=== PATIENT | male | born 1965 | race Caucasian/White ===

== ENCOUNTER → 2021-07-21 08:52 | Outpatient (BNVA) | payer MEDICARE, MEDICAID, SELFPAY | PROVIDERS: Visit Provider Urology | DX: N52.9 Male erectile dysfunction, unspecified (principal) | CPT/HCPCS: 51798; 99212 ==

== ENCOUNTER → 2023-02-07 13:58 | Outpatient (BNVA) | payer MEDICARE, MEDICAID, SELFPAY | PROVIDERS: PCP Nurse Practitioner Family; Visit Provider Urology | DX: N40.0 Benign prostatic hyperplasia without lower urinary tract symptoms (principal); N52.9 Male erectile dysfunction, unspecified | CPT/HCPCS: 99212 ==

== ENCOUNTER 2023-07-13 10:07 | Outpatient (AMB) | payer MEDICARE, MEDICAID, SELFPAY ==
--- NOTE | 2023-07-13 10:08 | A.OFFVIS_ITS ---
Intake Intake Visit Reasons: Follow Up Intake Note: pt has televisit to follow upon visit 02/07/23 where he was prescribed Tadalafil 5mg Superintendent System Operation Required: Yes Allergies No Known Allergies Allergy (Verified 07/18/22 14:37) Medication List - Last Reconciled 07/13/23 by Lauri Blas MD amitriptyline 50 mg PO BEDTIME lisinopril-hydrochlorothiazide 20-12.5 mg 2 tabs PO DAILY losartan 100 mg PO DAILY losartan 50 mg PO DAILY rosuvastatin 10 mg PO DAILY sildenafil 100 mg PO DAILY PRN 30 days tadalafil 5 mg PO DAILY 90 days tramadol 50 mg PO BID PRN HPI HPI Comments History of Present Illness Details Honorio SANTANA is a very pleasant Beninese speaking male. He is a patient of Dr Hwang. He is seen for the following urologic conditions. - erectile dysfunction - lower urinary tract symptoms Telemedicine Evaluation 15 min Consultation [email or web address] [facility]ah Video Beninese translation provided by qualified medical voucher clerk Follow-up from daily tadalafil trial Extremely helpful Erections have improved Urinary control improved Would like to have refills 6 month follow-up PSA Lower urinary tract symptoms Combination of weakness of stream and mild nocturia Good response to daily tadalafil Erectile dysfunction:? Good effect with daily low-dose tadalafil in on demand sildenafil ? He presents today for?for continued evaluation and management of erectile dysfunction.? Symptoms have been present for/since?gradually since 2014.? Current treatment includes - viagra ? At this time he experiences erections?are partial and insufficient for vaginal penetration, that last until ejaculation, DARIAN 12-16 Mild-Moderate ED.? Currently they are?in a stable relationship.? Therapeutic plan includes?continue oral medications.? [facility] Medical History (Updated 07/13/23 @ 10:32 by Lauri Blas MD) Cirrhosis of liver BPH (benign prostatic hyperplasia) Osteoporosis History of urinary hesitancy Weak urinary stream Erectile dysfunction Surgical History History of bunionectomy Family History (Updated 02/07/23 @ 14:02 by TAQUERIA Burkett) Mother Unknown family medical history Father Unknown family medical history Social History (Updated 02/07/23 @ 14:02 by TAQUERIA Burkett) Alcohol intake: never Assessment & Plan Assessment & Plan (1) BPH (benign prostatic hyperplasia): Code(s): N40.0 - Benign prostatic hyperplasia without lower urinary tract symptoms Qualifiers: Lower urinary tract symptom presence: symptoms present Lower urinary tract symptom detail: urinary frequency Qualified Code(s): N40.1 - Benign prostatic hyperplasia with lower urinary tract symptoms; R35.0 - Frequency of micturition (2) Erectile dysfunction: Code(s): N52.9 - Male erectile dysfunction, unspecified Qualifiers: Erectile dysfunction type: vasculogenic Vasculogenic erectile dysfunction type: due to arterial insufficiency Qualified Code(s): N52.01 - Erectile dysfunction due to arterial insufficiency Plan Six month follow-up PSA Orders: Orders Prostate Specific Antigen 6 Months N40.0 - Benign prostatic hyperplasia without lower urinary tract symptoms Patient Instructions: Imaging studies, laboratory and physical exam results were discussed and reviewed in detail. No major barriers to patient understanding were identified. An opportunity to ask questions regarding the treatment plan was provided. All questions were answered. The patient expressed understanding and agreement with the above treatment plan. The patient is aware they should contact our office by phone for worsening of their current condition or the appearance of new urologic symptoms. Compliance is encouraged with any medications and followup testing that is ordered. It is a privilege to participate in the urologic care of your patient. If you have any questions or concerns regarding treatment for the above conditions, or other urologic issues, please do not hesitate to contact me. The office telephone contact is [phone]. This note is constructed using voice recognition software. While every effort has been made to ensure accuracy medical transcriptionist errors may have been included. Yours sincerely, Dr Lauri Blas MD, [facility] - Urology Providers of Expert, Compassionate Care for the Genitourinary System Telehealth Telehealth Location of provider rendering services: practice address Location of patient: address on file Patient Identification confirmed using: Name, : Yes Telehealth method: video Patient verbally consented to treatment: Yes Patient verbally consented to billing insurance company: Yes Patient informed of any privacy concerns related to visit: Yes Coding Level of Care Code Tele Est Pt Level 3 (84433) Diagnoses Benign prostatic hyperplasia with urinary frequency N40.1; R35.0 Lower urinary tract symptom presence: symptoms present Lower urinary tract symptom detail: urinary frequency Erectile dysfunction due to arterial insufficiency N52.01 Erectile dysfunction type: vasculogenic Vasculogenic erectile dysfunction type: due to arterial insufficiency
--- OUTSIDE RECORDS SUMMARY | 2023-07-13 10:09 | XMS_ITS | Continuity of Care Document ---
Author Name Unknown Organization [facility] Address [address] [place] [address]- Care Team Providers Care Cable Television Technician Name Role Phone Edu RODAS, Sandoval Primary Care Physician [phone] Encounter [facility] [place] [id number] Date(s): 01/20/23 - 02/19/[address] [address]- Attending Physician: Yenifer Hurst Admitting Physician: AdmtrYenifer Referring Physician: Admtr, Yenifer Allergies, Adverse Reactions, Alerts No Known Allergies Immunizations Given and Recorded Vaccine Date Status Refusal Reason [id number] 12y+ bivalent booster vax 07/28/22 Given influenza virus vaccine, inactivated 07/28/22 Give n influenza virus vaccine, inactivated 08/26/21 Give n influenza virus vaccine, inactivated 06/17/20 Ortiz rded influenza virus vaccine, inactivated 06/13/19 Give n influenza virus vaccine, inactivated 06/21/18 Give n influenza virus vaccine, inactivated 07/17/17 Give n influenza virus vaccine, inactivated 06/24/16 Ortiz rded influenza virus vaccine, inactivated 06/14/14 Ortiz rded influenza virus vaccine, inactivated 06/26/13 Ortiz rded influenza virus vaccine, inactivated 12/31/09 Give n SARS-CoV-2 (COVID-19) mRNA BNT-162b2 vac 1 08/26/21 Given SARS-CoV-2 (COVID-19) mRNA-1273 vaccine 04/30/21 R ecorded SARS-CoV-2 (COVID-19) mRNA-1273 vaccine 2 12/26/20 Given SARS-CoV-2 (COVID-19) mRNA-1273 vaccine 11/28/20 G iven zoster vaccine, inactivated 03/11/20 Recorded zoster vaccine, inactivated 11/28/19 Recorded pneumococcal 23-valent vaccine 03/11/20 Recorded pneumococcal 23-valent vaccine 01/14/14 Given hepatitis B adult vaccine 03/11/20 Recorded hepatitis B adult vaccine 11/28/19 Recorded hepatitis B adult vaccine 08/09/11 Given hepatitis B adult vaccine 03/08/11 Given hepatitis B adult vaccine 3 02/10/11 Given pneumococcal 13-valent vaccine 11/28/19 Recorded tetanus/diphtheria/pertussis, acel(Tdap) 11/28/19 Recorded tetanus/diphtheria/pertussis, acel(Tdap) 07/15/19 Given Hepatitis A Adult Vaccine 06/13/19 Given tetanus-diphtheria toxoids (Td) 12/29/09 Given 1Result Comment: diluent NSS [id number] exp:08/26/21 2Result Comment: Administered by Nery Gates 3Admin Note: VIS GIVEN PT WAITED 10 MIN IN LOBBYWITH NO ADVERSE EVENT. Medications amitriptyline 50 mg oral tablet 1 tablet, By Mouth, Daily at bedtime, # 90 tablet, 1 Refills, 02/16/23 14:27:00 EDT, [facility] #[id number], 160, cm, 01/20/23 9:51:00 EDT, Height, 79, kg, 10/04/22 11:00:00 EST, Dry Weight Start Date: 02/16/23 Status: Ordered amLODIPine 5 mg oral tablet 1 tablet = 5 mg, By Mouth, Daily, # 90 tablet, 1 Refills, Maintenance, 10/04/22 13:29:00 EST, [facility] #[id number], 160, cm, 10/04/22 11:21:00 EST, Height, 79, kg, 10/04/22 11:00:00 EST, Dry Weight Start Date: 10/04/22 Status: Ordered Blood Pressure Machine Blood Pressure Machine, See Instructions, # 1 each, Refills 0, Tot. Refills 0, Maintenance, Blood Pressure Machine Hypertension 401.9 Please use to help adjust BP meds to acheive goal BP., 11/12/20 17:41:00 EST, Supply Start Date: 11/12/20 Status: Ordered Cane See Instructions, # 1 each, Maintenance, Please dispense one cane. R26.9, 06/28/22 13:00:00 EDT, Supply Start Date: 06/28/22 Status: Ordered diclofenac 2% topical solution = 40 mg, Topically, 2 times a day, # 112 Gm, 0 Refills, Maintenance, 06/11/21 16:30:00 EDT, [facility] #[id number], Partial fill upon patient request if the prescription is for a schedule II opioid drug., 40 mg Topically 2 times a day, 160, cm, 0... Start Date: 06/11/21 Status: Ordered flunisolide 25 mcg/inh nasal spray 2 puffs, Nares, Both, 2 times a day, in each nostril, # 25 mL, 5 Refills, Maintenance, 08/17/21 12:19:00 EST, [place], [facility] #[id number], 2 puffs Nares, Both 2 times a day,Instr:in each nostril, 160, cm, 06/23/21 12:45:00 EDT, Height, 79.4, kg... Start Date: 08/17/21 Status: Ordered fluticasone 50 mcg/inh nasal spray See Instructions, SHAKE LIQUID AND USE 2 SPRAYS IN EACH NOSTRIL DAILY, # 48 Gm, 2 Refills, Maintenance, 11/03/22 18:08:00 EST, [facility] #[id number], 90, SHAKE LIQUID AND USE 2 SPRAYS IN EACH NOSTRIL DAILY, 160, cm, 11/03/22 15:54:00 EST, Height... Start Date: 11/03/22 Status: Ordered losartan 100 mg oral tablet 1 tablet, By Mouth, Daily, # 90 tablet, 1 Refills, Maintenance, 11/18/22 16:37:00 EST, [facility] #[id number], 160, cm, 11/10/22 12:24:00 EST, Height, 79, kg, 10/04/22 11:00:00 EST, Dry Weight Start Date: 11/18/22 Status: Ordered meloxicam 7.5 mg oral tablet 1 tablet = 7.5 mg, By Mouth, Daily, # 30 tablet, 0 Refills, Maintenance, 01/20/23 10:20:00 EDT, Tablet, [facility] #[id number], Partial fill upon patient request if the prescription is for a schedule II opioid drug., 160, cm, 01/20/23 9:51:00 EDT... Start Date: 01/20/23 Stop Date: 02/19/23 Status: Ordered Milk of Magnesia Liquid 30 mL, By Mouth, 2 times a day, PRN Constipation, 0 Refills, Maintenance, 04/09/21 11:37:00 EDT, [place], Partial fill upon patient request if the prescription is for a schedule II opioid drug. Start Date: 04/09/21 Status: Ordered MiraLax Powder 1 pack/packet = 17 Gm, By Mouth, Daily, 0 Refills, Maintenance, 04/09/21 11:37:00 EDT, Powder, Partial fill upon patient request if the prescription is for a schedule II opioid drug. Start Date: 04/09/21 Status: Ordered omeprazole 20 mg oral enteric coated capsule 1 capsule, By Mouth, Daily, # 90 capsule, 0 Refills, 11/12/21 12:34:00 EST, [facility] #[id number], 160, cm, 06/23/21 12:45:00 EDT, Height, 79.4, kg, 06/23/21 12:45:00 EDT, Dry Weight Start Date: 11/12/21 Status: Ordered rosuvastatin 10 mg oral tablet 1 tablet = 10 mg, By Mouth, Daily, Dosis aumento de 5 a 10mg 02/27/20, # 30 tablet, 11 Refills, Maintenance, 06/28/22 12:22:00 EDT, Tablet, [facility] #[id number], Please discontinue 5mg dose, 160, cm, 06/28/22 12:11:00 EDT, Height, 79.4, kg, 10/0... Start Date: 06/28/22 Status: Ordered traMADol 50 mg oral tablet 1 tablet = 50 mg, By Mouth, Every 12 hours, PRN for pain, # 60 tablet, 0 Refills, Maintenance, 12/04/22 13:43:00 EDT, Tablet, [facility] #[id number], Partial fill upon patient request if the prescription is for a schedule II opioid drug., 160, cm... Start Date: 12/04/22 Status: Ordered Tylenol Extra Strength 500 mg oral tablet 2 tablet = 1,000 mg, By Mouth, 3 times a day, PRN Pain , Moderate, # 120 tablet, 0 Refills, Maintenance, 06/11/21 16:31:00 EDT, Tablet, [facility] #[id number], Partial fill upon patient request if the prescription is for a schedule II opioid drug... Start Date: 06/11/21 Status: Ordered Problem List Condition Confirmation Course Effective Dates Status H ealth Status Informant Benign prostatic hyperplasia 1 Confirmed Active Bilateral bunions Confirmed Active Chronic tension headache Confirmed Active Cirrhosis of liver Confirmed Active Controlled substance agreement signed 01/05/2022 Confirmed Active Diffuse lymphadenopathy Confirmed Active Status post open reduction with internal fixation of fracture Confirmed Active H/o alcohol abuse Confirmed Active History of autoimmune hemolytic anemia Confirmed Active Hypertension Confirmed Active Acute kidney injury Confirmed Active Mediastinal adenopathy Confirmed Active Osteoporosis Confirmed Active Overweight Confirmed Active 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 Associate Professional Member Role: PCP Address: Address: [address] [place] [address]- Name: Mona Galvan RN Position: S RN Member Role: Primary Care Nurse Name: Britt Andrea RN Position: S RN Member Role: Primary Care Nurse Name: Rose Borges RN Position: [facility] SN RN Member Role: Primary Care Nurse Name: Eliz Judd RN Position: S Onco RN Member Role: Primary Care Nurse Care Team Related Persons Name: SOLEDAD SANTANA Address: [place] [address] Name: DEWAYNE SANTANA Address: home [address] [place] [address] Name: CHELO BALES Address: [address] [address]
--- OUTSIDE RECORDS SUMMARY | 2023-07-13 10:09 | XMS_ITS | Continuity of Care Document ---
Author Name Unknown Organization [facility] Address [address] [place] [address]- Care Team Providers Care Human Resources Records Clerk Name Role Phone Edu RODAS, Sandoval Primary Care Physician [place] [facility] [place] - 06/14/[address] [id number] Allergies, Adverse Reactions, Alerts No Known Allergies Immunizations Given and Recorded Vaccine Date Status Refusal Reason [id number] 12y+ bivalent booster vax 07/28/22 Given influenza [...] (Td) 12/29/09 Given 1Result Comment: diluent NSS Lot:[id number] exp:08/26/21 2Result Comment: Administered by Nery Gates 3Admin Note: VIS GIVEN PT WAITED 10 MIN IN LOBBYWITH NO ADVERSE EVENT. Medications amitriptyline 50 mg oral tablet 1 tablet, By Mouth, Daily at bedtime, # 90 tablet, 1 Refills, 02/16/23 14:27:00 EDT, [facility] #[id number], 160, cm, 01/20/23 9:51:00 EDT, Height, 79, kg, 10/04/22 11:00:00 EST, Dry Weight Start Date: 02/16/23 Status: Ordered amLODIPine 5 mg oral tablet 1 tablet, By Mouth, Daily, # 90 tablet, 2 Refills, Maintenance, 02/22/23 21:46:00 EDT, [facility] #[id number], 160, cm, 01/20/23 9:51:00 EDT, Height, 79, kg, 10/04/22 11:00:00 EST, Dry Weight Start Date: 02/22/23 Status: Ordered Blood Pressure Machine Blood Pressure [...] Gm, 0 Refills, Maintenance, 06/11/21 16:30:00 EDT, [facility] #[id number], Partial fill upon patient request if the prescription is for a schedule II opioid drug., 40 mg Topically 2 times a day, 160, cm, 0... Start Date: 06/11/21 Status: Ordered flunisolide 25 mcg/inh nasal spray 2 puffs, Nares, Both, 2 times a day, in each nostril, # 25 mL, 5 Refills, Maintenance, 08/17/21 12:19:00 EST, [place], [facility] #[id number], 2 puffs Nares, Both 2 times a day,Instr:in each nostril, 160, cm, 06/23/21 12:45:00 EDT, Height, 79.4, kg... Start Date: 08/17/21 Status: Ordered fluticasone 50 mcg/inh nasal spray See Instructions, SHAKE LIQUID AND USE 2 SPRAYS IN EACH NOSTRIL DAILY, # 48 Gm, 2 Refills, Maintenance, 11/03/22 18:08:00 EST, [facility] #[id number], 90, SHAKE LIQUID AND USE 2 SPRAYS IN EACH NOSTRIL DAILY, 160, cm, 11/03/22 15:54:00 EST, Height... Start Date: 11/03/22 Status: Ordered hydrochlorothiazide 25 mg oral tablet 1, tablet, By Mouth, Daily, # 30 tablet, Refills 5, Maintenance, 04/04/23 14:11:00 EDT, Route to Pharmacy Electronically, [facility] #[id number], 160, cm, 01/20/23 9:51:00 EDT, Height, 79, kg, 10/04/22 11:00:00 EST, Dry Weight Start Date: 04/04/23 Status: Ordered losartan 100 mg oral tablet 1 tablet, By Mouth, Daily, # 90 tablet, 1 Refills, Maintenance, 05/18/23 0:44:00 EDT, [facility] #[id number], 160, cm, 01/20/23 9:51:00 EDT, Height, 79, kg, 10/04/22 11:00:00 EST, Dry Weight Start Date: 05/18/23 Status: Ordered meloxicam 7.5 mg oral tablet 1 tablet = 7.5 mg, By Mouth, Daily, # 30 tablet, 0 Refills, Maintenance, 01/20/23 10:20:00 EDT, Tablet, [facility] #[id number], Partial fill upon patient request if the [...] 90 capsule, 0 Refills, 11/12/21 12:34:00 EST, [facility] #[id number], 160, cm, 06/23/21 12:45:00 EDT, Height, 79.4, kg, 06/23/21 12:45:00 EDT, Dry Weight Start Date: 11/12/21 Status: Ordered rosuvastatin 10 mg oral tablet 1 tablet = 10 mg, By Mouth, Daily, Dosis aumento de 5 a 10mg 02/27/20, # 30 tablet, 11 Refills, Maintenance, 06/28/22 12:22:00 EDT, Tablet, [facility] #[id number], Please discontinue 5mg dose, 160, cm, 06/28/22 12:11:00 EDT, Height, 79.4, kg, 100... Start Date: 06/28/22 Status: Ordered traMADol 50 mg oral tablet 1 tablet = 50 mg, By Mouth, Every 12 hours, PRN for pain, # 60 tablet, 0 Refills, Maintenance, 12/04/22 13:43:00 EDT, Tablet, [facility] #[id number], Partial fill upon patient request if the prescription is for a schedule II opioid drug., 160, cm... Start Date: 12/04/22 Status: Ordered Tylenol Extra Strength 500 mg oral tablet 2 tablet = 1,000 mg, By Mouth, 3 times a day, PRN Pain , Moderate, # 120 tablet, 0 Refills, Maintenance, 06/11/21 16:31:00 EDT, Tablet, [facility] #[id number], Partial fill upon patient request if the [...] of colon Confirmed 04/01/20 Active 1followed by [facility] Social History Social History Type Response Smoking Status Former smoker entered on: 12/17/14 Sex Patient Care team information Care Team Personnel Name: Ryanne Rivera Position: S Onco RN Member Role: Primary Care Nurse Name: Sandoval Sorensen NP Position: [facility] Associate Professional Member Role: PCP Address: Address: [address] [place] [address] Name: Mona Galvan RN Position: S RN Member Role: Primary Care Nurse Name: Britt Andrea RN Position: S RN Member Role: Primary Care Nurse Name: Rose Borges RN Position: [facility] SN RN Member Role: Primary Care Nurse Name: Eliz Judd RN Position: S Onco RN Member Role: Primary Care Nurse Care Team Related Persons Name: SOLEDAD SANTANA Address: [place] [address] Name: DEWAYNE SANTANA Address: home [address] [place] [id number] Name: CHELO BALES Address: [address] [address]
== END 2023-07-13 11:03 | disposition home or self-care (01) ==
LOC: HO.HUSH 10:07
PROVIDERS: PCP Nurse Practitioner Family; Visit Provider Urology
DX: N40.1 Benign prostatic hyperplasia with lower urinary tract symptoms (principal); R35.0 Frequency of micturition; N52.01 Erectile dysfunction due to arterial insufficiency
CPT/HCPCS: 99213

== ENCOUNTER → 2023-07-13 10:07 | Outpatient (BNVA) | payer MEDICARE, MEDICAID, SELFPAY | PROVIDERS: PCP Nurse Practitioner Family; Visit Provider Urology ==

== ENCOUNTER 2024-01-11 11:34 | Outpatient (REF) | payer MEDICARE, MEDICAID, SELFPAY ==
[2024-01-11 13:53] LABS: Prostate Specific Antigen 0.16 ng/mL (<0.05-4.0)
== END 2024-01-11 11:35 | disposition home or self-care (01) ==
LOC: HO.10HDL 11:34
PROVIDERS: Visit Provider Urology
DX: Z12.5 Encounter for screening for malignant neoplasm of prostate (principal); N40.0 Benign prostatic hyperplasia without lower urinary tract symptoms
CPT/HCPCS: 36415; 84153

== ENCOUNTER 2024-03-20 10:36 | Outpatient (AMB) | payer OTHER, SELFPAY ==
--- NOTE | 2024-03-20 11:41 | MHC.OFFVIS ---
Intake Visit Reasons: PSA/PVR Follow Up (set) Intake Note: Patient presents today for follow up visit on : BPH and Erectile Dysfunction Urology Medications: sildenafil and tadalafil Allergies to Antibiotic: none Blood Thinner: none PVR:. 25ml's Department Of Sociology Chair Required: Yes Allergies No Known Allergies Allergy (Verified 03/20/24 11:48) Medication List - Last Reconciled 03/20/24 by Lauri Blas MD amitriptyline 50 mg PO BEDTIME amlodipine 5 mg PO DAILY hydrochlorothiazide 25 mg PO DAILY lisinopril-hydrochlorothiazide 20-12.5 mg 2 tabs PO DAILY losartan 100 mg PO DAILY losartan 50 mg PO DAILY rosuvastatin 10 mg PO DAILY tadalafil 5 mg PO DAILY 90 days tramadol 50 mg PO BID PRN HPI Comments Details: Honorio SANTANA is a very pleasant Occitan speaking male. He is a patient of Dr Hwang. He is seen for the following urologic conditions. - erectile dysfunction - lower urinary tract symptoms Occitan translation provided by qualified medical technologist prn Six-month follow-up Continues daily tadalafil Improved urination and erections PSA 01/09 0.16 Twelve month follow-up PVR Lower urinary tract symptoms Combination of weakness of stream and mild nocturia Good response to daily tadalafil Erectile dysfunction:? Good effect with daily low-dose tadalafil in on demand sildenafil ? He presents today for?for continued evaluation and management of erectile dysfunction.? Symptoms have been present for/since?gradually since 2014.? Current treatment includes - viagra ? At this time he experiences erections?are partial and insufficient for vaginal penetration, that last until ejaculation, DARIAN 12-16 Mild-Moderate ED.? Currently they are?in a stable relationship.? Therapeutic plan includes?continue oral medications.? PFSH Medical History Cirrhosis of liver BPH (benign prostatic hyperplasia) Osteoporosis History of urinary hesitancy Weak urinary stream Erectile dysfunction Surgical History History of bunionectomy Family History Mother Unknown family medical history Father Unknown family medical history Social History Alcohol intake: never Review of Systems Const Denies chills and Denies fever(s) Card Reports no additional complaints and Denies syncope Resp Denies cough GI Denies abdominal pain and Denies heartburn Reports as per HPI and Denies change in libido Neuro Denies syncope Psych Denies change in libido Endo Denies change in libido Physical Exam Const General: cooperative, healthy appearing, comfortable and no acute distress Orientation/consciousness: patient oriented x3 HEENT Face and sinus: Yes normal facial exam Mouth: moist mucous membranes Neck Neck: Yes normal visual inspection, Yes full ROM and Yes trachea midline Chest Chest palpation & inspection: normal inspection of the chest Resp Effort & Inspection: normal respiratory effort, able to speak in complete sentences and no respiratory distress GI Inspection: Yes normal to inspection Back/Spine/Pelvis Cervical Spine: normal cervical lordosis Thoracic/Lumbar Spine: thoracic and lumbar spine normal to inspection Skin General skin exam: no rashes or lesions noted Neuro General: patient oriented x3, gait normal, tone normal and moves all extremities Extrem General: Yes normal to inspection and Yes capillary refill normal Office Procedures Post Void Residual Post Residual Void Post Void Residual (PVR): 25 [id number] Void Residual by ultrasound Assessment & Plan Assessment & Plan (1) Erectile dysfunction: Code(s): N52.9 - Male erectile dysfunction, unspecified Category: Medical Qualifiers: Erectile dysfunction type: vasculogenic Vasculogenic erectile dysfunction type: due to arterial insufficiency Qualified Code(s): N52.01 - Erectile dysfunction due to arterial insufficiency (2) BPH (benign prostatic hyperplasia): Code(s): N40.0 - Benign prostatic hyperplasia without lower urinary tract symptoms Category: Medical Qualifiers: Lower urinary tract symptom presence: symptoms present Lower urinary tract symptom detail: urinary frequency Qualified Code(s): N40.1 - Benign prostatic hyperplasia with lower urinary tract symptoms; R35.0 - Frequency of micturition Plan 12 month follow-up Orders: Orders AMB Post Void Residual by ultrasound Today N40.1 - Benign prostatic hyperplasia with lower urinary tract symptoms, R35.0 - Frequency of micturition Medications: Discontinued sildenafil administer 60 minutes before intended activity Discontinued Reason: Patient Completed Course 100 mg PO DAILY 30 days PRN 30 tabs 1RF sexual activity N52.9 - Male erectile dysfunction, unspecified Patient Instructions: Imaging studies, laboratory and physical exam results were discussed and reviewed in detail. No major barriers to patient understanding were identified. An opportunity to ask questions regarding the treatment plan was provided. All questions were answered. The patient expressed understanding and agreement with the above treatment plan. The patient is aware they should contact our office by phone for worsening of their current condition or the appearance of new urologic symptoms. Compliance is encouraged with any medications and followup testing that is ordered. It is a privilege to participate in the urologic care of your patient. If you have any questions or concerns regarding treatment for the above conditions, or other urologic issues, please do not hesitate to contact me. The office telephone contact is [phone]. This note is constructed using voice recognition software. While every effort has been made to ensure accuracy speech pathology teacher errors may have been included. Yours sincerely, Dr Lauri Blas MD, [facility] - Urology Providers of Expert, Compassionate Care for the Genitourinary System Coding Level of Care Code Est Pt Level 3 (21849) Diagnoses Erectile dysfunction due to arterial insufficiency N52.01 Erectile dysfunction type: vasculogenic Vasculogenic erectile dysfunction type: due to arterial insufficiency Benign prostatic hyperplasia with urinary frequency N40.1; R35.0 Lower urinary tract symptom presence: symptoms present Lower urinary tract symptom detail: urinary frequency CPT Codes Post Residual Void - PVR CPT Code: 91553-[id number] Void Residual by ultrasound ([id number])
== END 2024-03-20 11:57 | disposition home or self-care (01) ==
PROVIDERS: PCP Nurse Practitioner Family; Visit Provider Urology
DX: N52.01 Erectile dysfunction due to arterial insufficiency (principal); N40.1 Benign prostatic hyperplasia with lower urinary tract symptoms; R35.0 Frequency of micturition
CPT/HCPCS: 99213

== ENCOUNTER → 2024-03-20 10:36 | Outpatient (BNVA) | payer OTHER, SELFPAY | PROVIDERS: PCP Nurse Practitioner Family; Visit Provider Urology | DX: N40.1 Benign prostatic hyperplasia with lower urinary tract symptoms (principal); R35.0 Frequency of micturition; N52.01 Erectile dysfunction due to arterial insufficiency | CPT/HCPCS: 51798; 99212 ==

== ENCOUNTER 2025-04-15 09:52 | Outpatient (AMB) | payer MEDICARE, MEDICAID, SELFPAY ==
--- NOTE | 2025-04-15 10:25 | MHC.OFFVIS ---
Intake Visit Reasons: New hydrocele Intake Note: Patient presents today for New C/O Hydrocele Urology Medications: Amitriptyline, sildenafil and tadalafil Allergies to Antibiotic: none Blood Thinner: none PVR:35 mls . Social Insurance Adviser Required: Yes Social Insurance Adviser Services: Social Insurance Adviser Present Accompanied by: Self / Same As Patient Allergies No Known Allergies Allergy (Verified 04/15/25 10:29) HPI Comments Details: Honorio SANTANA is a very pleasant [place] speaking male. He is a patient of Dr Hwang. He is seen for the following urologic conditions. - erectile dysfunction - lower urinary tract symptoms [place] translation provided by qualified medical instructor Yearly assessment Urinary tract infection on UA today 1+ nitrites, 1+ leukocytes - urine for culture and antibiotics Continues daily tadalafil Improved urination and erections PSA 01/09 0.16 Has biliary atresia. Being evaluated in [place]. Left hydrocele Based on liver condition would only do drainage in office Lower urinary tract symptoms Combination of weakness of stream and mild nocturia Good response to daily tadalafil Erectile dysfunction:? Good effect with daily low-dose tadalafil in on demand sildenafil ? He presents today for?for continued evaluation and management of erectile dysfunction.? Symptoms have been present for/since?gradually since 2014.? Current treatment includes - viagra ? At this time he experiences erections?are partial and insufficient for vaginal penetration, that last until ejaculation, DARIAN 12-16 Mild-Moderate ED.? Currently they are?in a stable relationship.? Therapeutic plan includes?continue oral medications.? PFSH Medical History Cirrhosis of liver BPH (benign prostatic hyperplasia) Osteoporosis History of urinary hesitancy Weak urinary stream Erectile dysfunction Surgical History History of bunionectomy Family History Mother Unknown family medical history Father Unknown family medical history Social History (Reviewed 03/20/24 @ 11:48 by Marita Fiore, [facility]) Alcohol intake: never Review of Systems Const Denies chills and Denies fever(s) Card Reports no additional complaints and Denies syncope Resp Denies cough GI Denies abdominal pain and Denies heartburn Reports as per HPI and Denies change in libido Neuro Denies syncope Psych Denies change in libido Endo Denies change in libido Physical Exam Const General: cooperative, healthy appearing, comfortable and no acute distress Orientation/consciousness: patient oriented x3 HEENT Face and sinus: Yes normal facial exam Mouth: moist mucous membranes Neck Neck: Yes normal visual inspection, Yes full ROM and Yes trachea midline Chest Chest palpation & inspection: normal inspection of the chest Resp Effort & Inspection: normal respiratory effort, able to speak in complete sentences and no respiratory distress GI Inspection: Yes normal to inspection Back/Spine/Pelvis Cervical Spine: normal cervical lordosis Thoracic/Lumbar Spine: thoracic and lumbar spine normal to inspection Skin General skin exam: no rashes or lesions noted Neuro General: patient oriented x3, gait normal, tone normal and moves all extremities Extrem General: Yes normal to inspection and Yes capillary refill normal Assessment & Plan Assessment & Plan (1) BPH (benign prostatic hyperplasia): Code(s): N40.0 - Benign prostatic hyperplasia without lower urinary tract symptoms Category: Medical Qualifiers: Lower urinary tract symptom presence: symptoms present Lower urinary tract symptom detail: urinary frequency Qualified Code(s): N40.1 - Benign prostatic hyperplasia with lower urinary tract symptoms; R35.0 - Frequency of micturition (2) Hydrocele in adult: Code(s): N43.3 - Hydrocele, unspecified Category: Medical Plan Plan office hydrocele drain Patient Instructions: This note is constructed using voice recognition software. While every effort has been made to ensure accuracy toolmaker grade three errors may have been included. Imaging studies, laboratory and physical exam results were discussed and reviewed in detail. No major barriers to patient understanding were identified. An opportunity to ask questions regarding the treatment plan was provided. All questions were answered. The patient expressed understanding and agreement with the above treatment plan. The patient is aware they should contact our office by phone for worsening of their current condition or the appearance of new urologic symptoms. Compliance is encouraged with any medications and followup testing that is ordered. It is a privilege to participate in the urologic care of your patient. If you have any questions or concerns regarding treatment for the above conditions, or other urologic issues, please do not hesitate to contact me. The office telephone contact is [phone]. Sincerely, Dr Lauri Blas MD, [facility] - Urology Compassionate Specialist Care for the Genitourinary System Coding Level of Care Code Est Pt Level 4 (08172) Diagnoses Benign prostatic hyperplasia with urinary frequency N40.1; R35.0 Lower urinary tract symptom presence: symptoms present Lower urinary tract symptom detail: urinary frequency Hydrocele in adult N43.3
--- OUTSIDE RECORDS SUMMARY | 2025-04-15 10:30 | XMS_ITS | Clinical Summary ---
Author Organization [facility] Address [address] [place] [address] Phone Care Team Providers Care Actuarial Clerk Name Role Phone Scarlett Castro MD Primary Care Provider [phone] Allergies No known active allergies Encounters Date Type Department Care Team Description 04/08/2025 4:36 PM EDT - 04/08/2025 8:38 PM EDT Emergency [facility] Emergency [address] [place] [address] Jorge Saavedra MD Gordon, Ruth, MD Hydrocele, left (Primary Dx); Portal hypertension (CMS/HCC V24, CMS/HCC V28); Cirrhosis of liver with ascites, unspecified hepatic cirrhosis type (CMS/HCC V24, CMS/HCC V28); Esophageal varices without bleeding, unspecified esophageal varices type (CMS/HCC V24, CMS/HCC V28); Lymphadenopathy; Acquired abnormality of inferior vena cava; Renal calculus, left; Enlarged prostate Discharge Disposition: Home or Self Care from Last 3 Months Social History Tobacco Use Types Packs/Day Years Used Date Smoking Tobacco: Never Assessed Sex and Gender Information Value Date Recorded Sex Assigned at Not on file Legal Sex Male 11:35 PM EST Gender Identity Not on file Sexual Orientation Not on file Last Filed Vital Signs Vital Sign Reading Time Taken Comments Blood Pressure 129/73 04/08/2025 7:18 PM EDT Pulse 77 04/08/2025 7:18 PM EDT Temperature 36.8 C (98.2 F) 04/08/2025 7:18 PM EDT Respiratory Rate 16 04/08/2025 7:18 PM EDT Oxygen Saturation 98% 04/08/2025 7:18 PM EDT Inhaled Oxygen Concentration - - Weight - - Height - - Body Mass Index - - Plan of Treatment Health Maintenance Due Date Last Done Comments Hepatitis A Vaccines (2 of 2 - Risk 2-dose series) 12/12/2019 06/13/2019 COVID-19 Vaccine (5 - season) 2024 08/26/2021, 04/30/2021, 12/26/2020, Additional history exists Depression Screening 09/18/2024 Pneumococcal Vaccine: 50+ Years (3 of 3 - PCV20 or PCV21) 03/11/2025 03/11/2020, 11/28/2019, 01/14/2014 Cholesterol Screening (Lipid Panel) 04/09/2025 Colorectal Cancer Screening: Colonoscopy 04/09/2025 HIV Screening 04/09/2025 Hepatitis C Screening 04/09/2025 Medicare Annual Wellness Visit 04/09/2025 Social Influencers of Health Screening 04/09/2025 Influenza Vaccine (#1) 2025 2, 08/26/2021, 06/17/2020, Additional history exists Hypertension/CHF/CAD Annual BMP Blood Test 04/08/2026 04/08/2025 DTaP,Tdap,and Td Vaccines (4 - Td or Tdap) 11/27/2029 11/28/2019, 07/15/2019, 12/29/2009 Hepatitis B Vaccines Completed 03/11/2020, 11/28/2019, 08/09/2011, Additional history exists Zoster Vaccines Completed 03/11/2020, 11/28/2019 HIB Vaccines Aged Out No longer eligi ble based on patient's age to complete this topic HPV Vaccines Aged Out No longer eligi ble based on patient's age to complete this topic IPV Vaccines Aged Out No longer eligi ble based on patient's age to complete this topic MMR Vaccines Aged Out No longer eligi ble based on patient's age to complete this topic Meningococcal ACWY Vaccine Aged Out N o longer eligible based on patient's age to complete this topic Meningococcal B Vaccine Aged Out No l onger eligible based on patient's age to complete this topic RSV Immunization Patients Under 20 months Aged Out No longer eligible based on patient's age to complete this topic Varicella Vaccines Aged Out No longer eligible based on patient's age to complete this topic Procedures Procedure Name Priority Date/Time Associated Diagnosis Comments CT ABDOMEN PELVIS W CONTRAST STAT 04/08/2025 7:32 PM EDT COMPLETE BLOOD COUNT STAT 04/08/2025 6:02 PM EDT BASIC METABOLIC PANEL STAT 04/08/2025 6:02 PM EDT URINALYSIS WITH REFLEX MICROSCOPIC STAT 04/08/2025 5:59 PM EDT URINALYSIS WITH REFLEX MICROSCOPIC STAT 04/08/2025 5:59 PM EDT US SCROTUM AND CONTENTS STAT 04/08/2025 4:08 PM EDT from Last 3 Months Results * CT Abdomen Pelvis w Contrast (04/08/2025 7:32 PM EDT) Anatomical Region Laterality Modality Body Computed Tomogra phy 04/08/2025 7:59 PM EDT Impressions 04/08/2025 7:59 PM EDT 1. Portal hypertension with findings suggestive of cirrhosis. Multiple portosystemic collateral vessels are present, including periesophageal varices. 2. Multiple sites of lymphadenopathy within the chest and abdomen. Differential considerations include reactive lymph node enlargement versus metastatic disease versus lymphoma. 3. 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 4. Nonobstructing left renal calculus. 5. Small amount of pelvic ascites. 6. Prostate enlargement. This document has been electronically signed by: Viviana Owens MD on 04/08/2025 19:59:09 Narrative 04/08/2025 7:59 PM EDT INDICATION: Abdominal pain, acute, no prior medical history CT abdomen and pelvis with contrast Comparison: None provided Findings: Right pericardiac adenopathy measuring 17 mm short axis. Multiple pathologically enlarged anteroinferior mediastinal lymph nodes, largest of which measures 15 mm short axis. There are multiple pathologically enlarged lymph nodes versus unopacified venous varices within the posterior inferior mediastinum in the subcarinal and periesophageal location, largest of which measures 12 mm short axis. Gallbladder is contracted. Liver is shrunken without focal mass. Spleen is enlarged measuring 15 cm. Nonobstructing calculus within the left inferior pole kidney anteriorly measuring 7 mm. Solid organs are otherwise within normal limits. No bowel obstruction, pneumoperitoneum, or pneumatosis. Multiple pathologically enlarged mesenteric and retroperitoneal lymph nodes are present, largest of which are in the left-sided retroperitoneal location measuring 13 mm short axis, as well as the left upper quadrant /Peripancreatic locationmeasuring 16 mm short axis. There are multiple portosystemic collateral vessels present, predominantly within the left upper quadrant and periesophageal location. There is severe intrahepatic narrowing of the inferior vena cava. Small amount of pelvic ascites. Appendix is not seen. Prostate is enlarged and indents the urinary bladder base. The bones are intact. Procedure Note Viviana Owens MD - 04/08/2025 INDICATION: Abdominal pain, acute, no prior medical history CT abdomen and pelvis with contrast Comparison: None provided Findings: Right pericardiac adenopathy measuring 17 mm short axis. Multiple pathologically enlarged anteroinferior mediastinal lymph nodes, largestof which measures 15 mm short axis. There are multiple pathologically enlarged lymph nodes versus unopacified venous varices within the posterior inferior mediastinum in the subcarinal and periesophageal location, largest of which measures 12 mm short axis. Gallbladder is contracted. Liver is shrunken without focal mass. Spleenis enlarged measuring 15 cm. Nonobstructing calculus within the leftinferior pole kidney anteriorly measuring 7 mm. Solid organs are otherwise within normal limits. No bowel obstruction, pneumoperitoneum, or pneumatosis. Multiple pathologically enlarged mesenteric and retroperitoneal lymph nodes are present, largest of which are in the left-sidedretroperitoneal location measuring 13 mm short axis, as well as the left upper quadrant /Peripancreatic locationmeasuring 16 mm short axis. There are multiple portosystemic collateral vessels present,predominantly within the left upper quadrant and periesophageal location. There is severe intrahepatic narrowing of the inferior vena cava. Small amount of pelvic ascites. Appendix is not seen. Prostate isenlarged and indents the urinary bladder base. The bones are intact. IMPRESSION: 1. Portal hypertension with findings suggestive of cirrhosis. Multiple portosystemic collateral vessels are present, including periesophageal varices. 2. Multiple sites of lymphadenopathy within the chest and abdomen. Differential considerations include reactive lymph node enlargementversus metastatic disease versus lymphoma. 3. 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 4. Nonobstructing left renal calculus. 5. Small amount of pelvic ascites. 6. Prostate enlargement. This document has been electronically signed by: Viviana Owens MD on 04/08/2025 19:59:09 Twyla Salazar MD IM CT PROCEDURES Final Result * (ABNORMAL) CBC (04/08/2025 6:02 PM EDT) WBC 4.1(L) 4.8 - 10.8 K/mcL LAB HEMETOLOGY METHOD 04/08/2025 6:26 PM EDT [facility] RBC 3.20(L) 4.50 - 5.50 M/mcL LAB [facility] Hemoglobin 10.4(L) 13.5 - 17.5 g/dL LAB HEMETOLOGY METHOD [facility]08[facility]25 [facility] Hematocrit 32.7(L) 42.0 - 54.0 % LAB HEMETOLOGY METHOD 04/08/2025 6:26 PM [facility] MCV 100.9(H) 79.0 - 98.0 FL LAB HEMETOLOGY METHOD 04/08/2025 6:26 PM [facility] MCH 32.1(H) 27.0 - 32.0 pcg LAB HEMETOLOGY METHOD 04/08/2025 6:26 PM [facility] MCHC 31.8(L) 32.0 - 37.0 g/dL LAB HEMETOLOGY METHOD 04/08/2025 6:26 PM [facility] RDW 17.2(H) 11.0 - 15.0 % LAB HEMETOLOGY METHOD 04/08/2025 6:26 PM [facility] Platelets 327 130 - 400 K/mcL LAB HEMETOLOGY METHOD 04/08/2025 6:26 PM EDT [facility] MPV 9.3 7.0 - 11.0 FL LAB HEMETOLOGY METHOD 04/08/2025 6:26 PM EDT [facility] NRBC 0.0 <1.0 % LAB HEMETOLOGY METHOD 04/08/2025 6:26 PM EDT [facility] NRBC Absolute 0.00 <0.10 K/mcL LAB HEMETOLOGY METHOD 04/08/2025 6:26 PM EDT [facility] Blood Venous blood specimen / Unknown Venipuncture / Unknown 04/08/2025 6:02 PM EDT 04/08/2025 6:21 PM EDT us Twyla Salazar MD LAB BLOOD ORDERABLES Final Resul t [facility] [address] [place] [address], * (ABNORMAL) Basic Metabolic Panel (BMP) (04/08/2025 6:02 PM EDT) Sodium 133 133 - 145 mmol/L LAB CHEMISTRY METHOD 04/08/2025 7:01 PM [facility] Potassium 4.2 3.5 - 5.5 mmol/L LAB CHEMISTRY METHOD 04/08/2025 7:01 PM [facility] Chloride 104 96 - 110 mmol/L LAB CHEMISTRY METHOD 04/08/2025 7:01 PM [facility] CO2 25 21 - 32 mmol/L LAB CHEMISTRY METHOD 04/08/2025 7:01 PM [facility] Anion Gap 4 3 - 11 LAB CHEMISTRY METHOD 04/08/2025 7:01 PM [facility] Glucose 85 70 - 100 mg/dL LAB CHEMISTRY METHOD 04/08/2025 7:01 PM [facility] BUN 5 5 - 25 mg/dL LAB CHEMISTRY METHOD 04/08/2025 7:01 PM EDT [facility] Creatinine 0.55(L) 0.70 - 1.30 mg/dL LAB CHEMISTRY METHOD 04/08/2025 7:01 PM EDT [facility] eGFR 116 >=60 mL/min/1. 73m2 LAB CHEMISTRY METHOD 04/08/2025 7:01 PM EDT [facility] Comment:Calculation based on the Chronic Kidney Disease Epidemiology Collaboration (CKD-EPI) equation refit without adjustment for race. BUN/Creatinine Ratio 9.1 LAB CHEMISTRY METHOD 04/08/2025 7:01 PM EDT [facility] Calcium 8.7 8.5 - 10.5 mg/dL LAB CHEMISTRY METHOD [facility] Blood Venous blood specimen / Unknown Venipuncture / Unknown 04/08/2025 6:02 PM EDT 04/08/2025 6:21 PM EDT us Twyla Salazar MD LAB BLOOD ORDERABLES Final Resul t [facility] [address] [place] [address], [place] [phone] * (ABNORMAL) Urinalysis with reflex microscopic (04/08/2025 5:59 PM EDT) Specific [place]ison Urine 1.016 1.003 - 1.030 LAB URINALYSIS - AUTOMATED METHOD 04/08/2025 6:51 PM EDT [facility] pH, Urine 6.5 5.0 - 8.0 pH LAB URINALYSIS - AUTOMATED METHOD 04/08/2025 6:51 PM [facility] Leukocytes, Urine Small(A) Negative LAB URINALYSIS - AUTOMATED METHOD 04/08/2025 6:51 PM EDT [facility] Nitrite, Urine Negative Negative LAB URINALYSIS - AUTOMATED METHOD 04/08/2025 6:51 PM [facility] Protein, Urine Trace <=Trace mg/dL LAB URINALYSIS - AUTOMATED METHOD 04/08/2025 6:51 PM [facility] Glucose, Urine Negative Negative mg/dL LAB URINALYSIS - AUTOMATED METHOD 04/08/2025 6:51 PM [facility] Ketones, Urine Negative Negative mg/dL LAB URINALYSIS - AUTOMATED METHOD 04/08/2025 6:51 PM [facility] Urobilinogen, Urine 2.0(A) 0.2 - 1.0 mg/dL LAB URINALYSIS - AUTOMATED METHOD 04/08/2025 6:51 PM [facility] Bilirubin, Urine Large(A) Negative LAB URINALYSIS - AUTOMATED METHOD 04/08/2025 6:51 PM [facility] Blood, Urine Negative Negative LAB URINALYSIS - AUTOMATED METHOD 04/08/2025 6:51 PM [facility] RBC, Urine 4.1(H) 0 - 4 /HPF LAB URINALYSIS - AUTOMATED METHOD 04/08/2025 6:51 PM [facility] WBC, Urine 0.4 0 - 4 /HPF LAB URINALYSIS - AUTOMATED METHOD 04/08/2025 6:51 PM [facility] Squamous Epithelial, Urine 6 0 - 60 /LPF LAB URINALYSIS - AUTOMATED METHOD 04/08/2025 6:51 PM [facility] Bacteria, Urine Few(A) Negative /HPF LAB URINALYSIS - AUTOMATED METHOD 04/08/2025 6:51 PM [facility] Hyaline Casts, Urine 0.8 0 - 3 /LPF LAB URINALYSIS - AUTOMATED METHOD 04/08/2025 6:51 PM [facility] Urine Urine specimen obtained by clean catch procedure / Unknown Non-blood Collection / Unknown 04/08/2025 5:59 PM EDT 04/08/2025 6:21 PM EDT us Twyla Salazar MD LAB URINE ORDERABLES Final Resul t [facility] [place] [facility]) [facility] [address] [facility] [place] [address], [place] [phone] * US Scrotum and Contents (04/08/2025 4:08 PM EDT) Anatomical Region Laterality Modality Body Ultrasound 04/08/2025 4:4 6 PM EDT Impressions 04/08/2025 4:52 PM EDT No suspicious mass in either testicle. Scattered punctate bright reflectors consistent with microlithiasis. Greater than 6 cm left scrotal fluid collection with low-level mobile echoes perhaps a hydrocele. -------- FINAL REPORT -------- Dictated By: Niraj Nuñez Dictated Date: 04/08/2025 16:46 ET Assigned Physician: Niraj Nuñez Reviewed and Electronically Signed By: Niraj Nuñez Signed Date: 04/08/2025 16:52 ET Workstation ID: [id number] Transcribed By: Self Edit Transcribed Date: 04/08/2025 16:46 ET Narrative 04/08/2025 4:52 PM EDT EXAM: SCROTAL ULTRASOUND HISTORY: Scrotal swelling. Clinical concern for torsion. Left groin swelling. TECHNIQUE: Real-time grayscale evaluation of the scrotum. Color mapping of each testicle. Doppler spectral assessment of each testicle. COMPARISON: None FINDINGS: QUALITY: Adequate RIGHT TESTICLE: No suspicious right testicular mass. There are scattered bright reflectors without shadowing. The right testicular contour is smooth. Size: 2.6 x 1.3 x 3.2 cm Right vascularity: Normal Right echogenicity: Homogeneous Right extratesticular: No suspicious abnormality. The epididymis is not enlarged. There is no peristalsing bowel. There is a linear shadowing calcification measuring 0.4 cm consistent with a scrotal raphael which is of no clinical significance. There is a circumscribed 1.4 cm round right epididymal cyst or spermatocele. Right scrotal fluid: Small amount of nonspecific right scrotal fluid. LEFT TESTICLE: No suspicious left testicular mass. Contour is smooth. Echotexture is homogeneous. There are scattered punctate bright reflectors without shadowing. The left testicle is displaced by a large scrotal fluid collection. Size: 2.5 x 1.7 x 1.8 cm Left vascularity: Normal Left echogenicity: Homogeneous Left extratesticular: No peristalsing bowel. Left scrotal fluid: There is a large amount of left scrotal fluid with mobile low-level echoes which measures approximately 6.0 x 5.0 x 6.6 cm. ADDITIONAL: None Procedure Note Niraj Nuñez MD - 04/08/2025 EXAM: SCROTAL ULTRASOUND HISTORY: Scrotal swelling. Clinical concern for torsion. Left groinswelling. TECHNIQUE: Real-time grayscale evaluation of the scrotum. Color mapping ofeach testicle. Doppler spectral assessment of each testicle. COMPARISON: None FINDINGS: QUALITY: Adequate RIGHT TESTICLE: No suspicious right testicular mass. There are scatteredbright reflectors without shadowing. The right testicular contour issmooth. Size: 2.6 x 1.3 x 3.2 cm Right vascularity: Normal Right echogenicity: Homogeneous Right extratesticular: No suspicious abnormality. The epididymis is notenlarged. There is no peristalsing bowel. There is a linear shadowingcalcification measuring 0.4 cm consistent with a scrotal raphael which is ofno clinical significance. There is a circumscribed 1.4 cm round right epididymal cyst orspermatocele. Right scrotal fluid: Small amount of nonspecific right scrotal fluid. LEFT TESTICLE: No suspicious left testicular mass. Contour is smooth.Echotexture is homogeneous. There are scattered punctate bright reflectorswithout shadowing. The left testicle is displaced by a large scrotal fluidcollection. Size: 2.5 x 1.7 x 1.8 cm Left vascularity: Normal Left echogenicity: Homogeneous Left extratesticular: No peristalsing bowel. Left scrotal fluid: There is a large amount of left scrotal fluid withmobile low-level echoes which measures approximately 6.0 x 5.0 x 6.6 cm. ADDITIONAL: None IMPRESSION: No suspicious mass in either testicle. Scattered punctate bright reflectors consistent with microlithiasis. Greater than 6 cm left scrotal fluid collection with low-level mobileechoes perhaps a hydrocele. -------- FINAL REPORT -------- Dictated By: Niraj Nuñez Dictated Date: 04/08/2025 16:46 ET Assigned Physician: Niraj Nuñez Reviewed and Electronically Signed By: Niraj Nuñez Signed Date: 04/08/2025 16:52 ET Workstation ID: [id number] Transcribed By: Self Edit Transcribed Date: 04/08/2025 16:46 ET us Twyla Salazar MD IMG US PROCEDURES Final Result from Last 3 Months Insurance MEDICARE MEDICAID - [place] Care Teams Actuarial Clerk Relationship Specialty Start Date End Date Scarlett Castro MD [address] [facility] [address] [place] [id number] PCP - General Internal Medicine 12/27/18
--- OUTSIDE RECORDS SUMMARY | 2025-04-15 10:30 | XMS_ITS ---
Author Name [facility] Organization Unknown Care Team Organization Name Specialty Phone Email Start Date End [facility] 08/24/2024
== END 2025-04-15 11:31 | disposition home or self-care (01) ==
LOC: HO.HUSH 09:53
PROVIDERS: PCP Nurse Practitioner Family; Visit Provider Urology
DX: N40.1 Benign prostatic hyperplasia with lower urinary tract symptoms (principal); R35.0 Frequency of micturition; N43.3 Hydrocele, unspecified; Z13.9 Encounter for screening, unspecified
CPT/HCPCS: 99214

== ENCOUNTER 2025-04-15 09:52 | Outpatient (REF) | payer MEDICARE, MEDICAID, SELFPAY | END 2025-04-15 09:53 | disposition home or self-care (01) | LOC: HO.LNP 09:52 | PROVIDERS: PCP Nurse Practitioner Family; Visit Provider Urology | DX: N40.1 Benign prostatic hyperplasia with lower urinary tract symptoms (principal); R35.0 Frequency of micturition; N39.0 Urinary tract infection, site not specified; N43.3 Hydrocele, unspecified; Z13.89 Encounter for screening for other disorder | CPT/HCPCS: 51798; 81003; 87086; 99212 ==

== ENCOUNTER 2025-06-10 13:30 | Outpatient (AMB) | payer MEDICARE, MEDICAID, SELFPAY ==
--- NOTE | 2025-06-10 13:40 | MHC.OFFVIS ---
Intake Visit Reasons: hydrocele drainage Allergies No Known Allergies Allergy (Verified 04/15/25 10:29) PFSH Medical History Cirrhosis of liver BPH (benign prostatic hyperplasia) Osteoporosis History of urinary hesitancy Weak urinary stream Erectile dysfunction Surgical History History of bunionectomy Family History Mother Unknown family medical history Father Unknown family medical history Social History Alcohol intake: never Office Procedures I&D Drain All charges added?: Procedure code (CPT) selection complete Office Meds lidocaine HCl 10 mg/mL (1 %) injection solution Performing Provider: Lauri Blas MD [facility] Administered by: Ese Vyas RN on 06/10/25 13:40 Dose Route Admin Location Dispensed Lot Number Expiration Date [facility] [place] 2[place] Hot Water Heater Installer 60 mL subcut 60 mL Total Dispensed Waste 60 mL 0 % Assessment & Plan Assessment & Plan Orders: Orders AMB Incision & Drainage Today N43.3 - Hydrocele, unspecified Coding
--- NOTE | 2025-06-10 13:41 | MHC.OFFVIS ---
Intake Visit Reasons: hydrocele drainage Intake Note: Patient presents today for Hydrocele drainage Urology Medications: Amitriptyline, Allergies to Antibiotic: none Blood Thinner: none LAST PVR:35 mls . Library Acquisitions Technician Required: Yes Library Acquisitions Technician Services: Library Acquisitions Technician Present Accompanied by: Self / Same As Patient Allergies No Known Allergies Allergy (Verified 04/15/25 10:29) HPI Comments Details: Honorio SANTANA is a very pleasant Tunisian speaking male. He is a patient of Dr Hwang. He is seen for the following urologic conditions. - erectile dysfunction - lower urinary tract symptoms Tunisian translation provided by qualified medical officer psychiatry Here for left hydrocele drainage - 80 cc drainage Continues daily tadalafil Improved urination and erections PSA 01/09 0.16 Has biliary atresia. Being evaluated in [place]. Left hydrocele Based on liver condition would only do drainage in office Lower urinary tract symptoms Combination of weakness of stream and mild nocturia Good response to daily tadalafil Erectile dysfunction:? Good effect with daily low-dose tadalafil in on demand sildenafil ? He presents today for?for continued evaluation and management of erectile dysfunction.? Symptoms have been present for/since?gradually since 2014.? Current treatment includes - viagra ? At this time he experiences erections?are partial and insufficient for vaginal penetration, that last until ejaculation, DARIAN 12-16 Mild-Moderate ED.? Currently they are?in a stable relationship.? Therapeutic plan includes?continue oral medications.? PFSH Medical History Cirrhosis of liver BPH (benign prostatic hyperplasia) Osteoporosis History of urinary hesitancy Weak urinary stream Erectile dysfunction Surgical History History of bunionectomy Family History Mother Unknown family medical history Father Unknown family medical history Social History Alcohol intake: never Review of Systems Const Denies chills and Denies fever(s) Card Reports no additional complaints and Denies syncope Resp Denies cough GI Denies abdominal pain and Denies heartburn Reports as per HPI and Denies change in libido Neuro Denies syncope Psych Denies change in libido Endo Denies change in libido Physical Exam Const General: cooperative, healthy appearing, comfortable and no acute distress Orientation/consciousness: patient oriented x3 HEENT Face and sinus: Yes normal facial exam Mouth: moist mucous membranes Neck Neck: Yes normal visual inspection, Yes full ROM and Yes trachea midline Chest Chest palpation & inspection: normal inspection of the chest Resp Effort & Inspection: normal respiratory effort, able to speak in complete sentences and no respiratory distress GI Inspection: Yes normal to inspection Back/Spine/Pelvis Cervical Spine: normal cervical lordosis Thoracic/Lumbar Spine: thoracic and lumbar spine normal to inspection Skin General skin exam: no rashes or lesions noted Neuro General: patient oriented x3, gait normal, tone normal and moves all extremities Extrem General: Yes normal to inspection and Yes capillary refill normal Office Procedures I&D Drain Details: PreOperative Diagnosis: Left hydrocele Post Operative Diagnosis: Left hydrocele Procedure: Drainage of hydrocele with sclerotherapy in office Surgeon: Dr Lauri Blas Anesthesia: Local Indications for procedure: Persistent hydrocele Procedure: Informed consent was verified and site confirmed The testicle was prepped using Betadine swab stick 10 cc 1% lidocaine placed in cord for cord block Testicle was elevated and 18 gauge Angiocath placed for drainage of hydrocele fluid Eighty cc of fluid removed 20 cc of 200 mg doxycycline mixed with 1% lidocaine injected for sclerotherapy Procedure tolerated CPT 24522, 85807 All charges added?: Additional procedure code (CPT) needed (CPT 76658, 42612) Office Meds lidocaine HCl 10 mg/mL (1 %) injection solution Performing Provider: Lauri Blas MD Per[facility] Administered by: Ese Vyas RN on 06/10/25 13:40 Dose Route Admin Location Dispensed Lot Number Expiration Date [facility] Customer Service Manager 60 mL subcut 60 mL Total Dispensed Waste 60 mL 0 % Assessment & Plan Assessment & Plan (1) Hydrocele in adult: Code(s): N43.3 - Hydrocele, unspecified Category: Medical Plan Two week follow-up check nursing Orders: Orders AMB Incision & Drainage Today N43.3 - Hydrocele, unspecified Patient Instructions: This note is constructed using voice recognition software. While every effort has been made to ensure accuracy continuity editor errors may have been included. Imaging studies, laboratory and physical exam results were discussed and reviewed in detail. No major barriers to patient understanding were identified. An opportunity to ask questions regarding the treatment plan was provided. All questions were answered. The patient expressed understanding and agreement with the above treatment plan. The patient is aware they should contact our office by phone for worsening of their current condition or the appearance of new urologic symptoms. Compliance is encouraged with any medications and followup testing that is ordered. It is a privilege to participate in the urologic care of your patient. If you have any questions or concerns regarding treatment for the above conditions, or other urologic issues, please do not hesitate to contact me. The office telephone contact is [phone]. Sincerely, Dr Lauri Blas MD, [facility] - Urology Compassionate Specialist Care for the Genitourinary System Coding Level of Care Code Procedure Only Diagnoses Hydrocele in adult N43.3
--- OUTSIDE RECORDS SUMMARY | 2025-06-10 16:37 | XMS_ITS | Clinical Summary ---
Author Organization [facility] Address [address] [place] [address] Phone Care Team Providers Care Ticket Taker Name Role Phone Tiffanie Vincent NP Primary Care Provider [phone] Allergies No known active allergies Medications albuterol HFA (PROAIR HFA ; PROVENTIL HFA ; VENTOLIN HFA) 90 mcg/actuation inhaler Inhale 2 puffs by mouth every 4 (four) hours if needed for wheezing. 6.7 each 04/28/2025 Active Encounters Date Type Department Care Team Description 04/28/2025 3:47 PM EDT - 04/28/2025 4:53 PM EDT Emergency [facility] Emergency [address] [place] [id number] Acute bronchitis, unspecified organism (Primary Dx) Discharge Disposition: Home or Self Care 04/08/2025 4:36 PM EDT - 04/08/2025 8:38 PM EDT Emergency [facility] Emergency [address] [place] [phone] Jorge Saavedra MD Gordon, Ruth, MD [...] or Self Care from Last 3 Months Medical History Medical History Date Comments Asthma Social History Tobacco Use Types Packs/Day Years Used Date Smoking Tobacco: Never Assessed Sex and Gender Information Value Date Recorded Sex Assigned at Not on file Legal Sex Male 11:35 PM EST Gender Identity Not on file Sexual Orientation Not on file Obstetrics History Last Filed Vital Signs Vital Sign Reading Time Taken Comments Blood Pressure 124/68 04/28/2025 4:52 PM EDT Pulse 111 04/28/2025 4:52 PM EDT Temperature 37.3 C (99.1 F) 04/28/2025 4:52 PM EDT Respiratory Rate 20 04/28/2025 4:52 PM EDT Oxygen Saturation 94% 04/28/2025 4:52 PM EDT Inhaled Oxygen Concentration - - Weight 68 kg (150 lb) 04/28/2025 2:19 PM EDT Height 157.5 cm (5' 2 ) 04/28/2025 2:19 PM EDT Body Mass Index 27.44 04/28/2025 2:19 PM EDT Plan of Treatment Health Maintenance Due Date Last Done Comments Depression Screening 09/18/2024 Pneumococcal Vaccine: 50+ Years [...] history exists Zoster Vaccines Completed 03/11/2020, 11/28/2019 COVID-19 Vaccine Completed 04/14/2025, 05/2021, 04/30/2021, Additional history exists Hepatitis A Vaccines Completed 04/14/2025, 06/13/20 19 HIB Vaccines Aged Out No longer eligi [...] Procedure Name Priority Date/Time Associated Diagnosis Comments XR CHEST 2 VIEWS STAT 04/28/2025 3:20 PM EDT [id number], RSV, FLU A AND B QUALITATIVE RT-PCR, INTERNAL LAB STAT 04/28/2025 3:[address] ABDOMEN PELVIS W CONTRAST STAT 04/08/2025 7:32 PM EDT COMPLETE BLOOD COUNT STAT 04/08/2025 6:02 PM EDT BASIC METABOLIC PANEL STAT 04/08/2025 6:02 PM EDT URINALYSIS WITH REFLEX MICROSCOPIC STAT 04/08/2025 5:59 PM EDT URINALYSIS WITH REFLEX MICROSCOPIC STAT 04/08/2025 5:59 PM EDT US SCROTUM AND CONTENTS STAT 04/08/2025 4:08 PM EDT from Last 3 Months Results * XR Chest 2 Views (04/28/2025 3:20 PM EDT) Anatomical Region Laterality Modality Body Radiographic Enriqueta ging 04/28/2025 3:38 PM EDT Impressions 04/28/2025 3:39 PM EDT No acute findings. -------- FINAL REPORT -------- Dictated By: Ayaan Estes Dictated Date: 04/28/2025 15:38 ET Assigned Physician: Ayaan Estes Reviewed and Electronically Signed By: Ayaan Estes Signed Date: 04/28/2025 15:39 ET Workstation ID: [id number] Transcribed By: Self Edit Transcribed Date: 04/28/2025 15:38 ET Narrative 04/28/2025 3:39 PM EDT PROCEDURE: PA and lateral radiographs of the chest. HISTORY: dyspnea. COMPARISON: 01/04/2019. FINDINGS: Mildly hypoventilatory examination with an elevated right hemidiaphragm. Lungs and pleural spaces are clear. No pulmonary edema, pleural effusion, or pneumothorax. Bones appear demineralized. Stable upper thoracic vertebral compression deformity. Procedure Note Ayaan Estes MD - 04/28/2025 PROCEDURE: PA and lateral radiographs of the chest. HISTORY: dyspnea. COMPARISON: 01/04/2019. FINDINGS: Mildly hypoventilatory examination with an elevated right hemidiaphragm.Lungs and pleural spaces are clear. No pulmonary edema, pleural effusion,or pneumothorax. Bones appear demineralized. Stable upper thoracicvertebral compression deformity. IMPRESSION: No acute findings. -------- FINAL REPORT -------- Dictated By: Ayaan Estes Dictated Date: 04/28/2025 15:38 ET Assigned Physician: Ayaan Estes Reviewed and Electronically Signed By: Ayaan Estes Signed Date: 04/28/2025 15:39 ET Workstation ID: [id number] Transcribed By: Self Edit Transcribed Date: 04/28/2025 15:38 ET Ozzie Mark MD IMG XR PROCEDURES Final Result * [id number], RSV, Influenza A and B qualitative RT-PCR (04/28/2025 3:13 PM EDT) Influenza A PCR Not Detected Not Detected LAB MICROBIOLOGY METHOD 04/28/2025 4:25 PM EDT [facility] Influenza B PCR Not Detected Not Detected LAB MICROBIOLOGY METHOD 04/28/2025 4:25 PM EDT [facility] RSV PCR Not Detected Not Detected LAB MICROBIOLOGY METHOD 04/28/2025 4:25 PM EDT [facility] SARS COV-2 Not Detected Not Detected LAB MICROBIOLOGY METHOD 04/28/2025 4:25 PM EDT [facility] Swab Both anterior nares / Unknown Non-blood Collection / Unknown 04/28/2025 3:13 PM EDT 04/28/2025 3:37 PM EDT Narrative [facility] - 04/28/2025 4:25 PM EDT Disclaimer: Testing was performed using the [employer] GeneXpert Xpress SARS-CoV-2 _Flu_RSV PLUS PCR assay. The manner in which this information is used to guide patient care is the responsibility of the healthcare provider. Results should be correlated with the clinical history, epidemiological data, and other data available to the clinician evaluating the patient. Negative results do not preclude infection. This test has been authorized by the FDA under an Emergency Use Authorization (EUA). This test is only authorized for the duration of time the declaration that circumstances exist justifying the authorization of the emergency use of in vitro diagnostic tests for detection of SARS-CoV-2 virus and/or diagnosis of COVID-19 infection under section 564 (b) (1) of the Act, 21 U.S.C 360bbb-3 (b) (1), unless the authorization is terminated or revoked sooner. Reference Range: Not Detected Fact sheet for Healthcare providers can be found at https://www.fda.gov/media/159505/download. Fact sheet for Healthcare patients can be found at https://www.fda.gov/media/574832/download. Ozzie Mark MD LAB MICROBIOLOGY - GENERAL VIDHYA MILES Final Result [facility] [address] [place] [address], [place] [phone] * CT Abdomen Pelvis w Contrast (04/08/2025 [...] MD on 04/08/2025 19:59:09 Twyla Salazar MD [facility] [place] CT PROCEDURES Final Result * (ABNORMAL) CBC (04/08/2025 6:02 PM EDT) WBC 4.1(L) 4.8 - 10.8 K/mcL LAB HEMETOLOGY METHOD 04/08/2025 6:26 PM EDT [facility] RBC 3.20(L) 4.50 - 5.50 M/mcL LAB HEMETOLOGY METHOD 04/08/2025 6:26 PM EDT [facility] Hemoglobin 10.4(L) 13.5 - 17.5 g/dL LAB HEMETOLOGY METHOD 04/08[facility]2025 6[facility] Hematocrit 32.7(L) 42.0 - 54.0 % LAB HEMETOLOGY METHOD 04/08/2025 6:26 PM EDT [facility] MCV 100.9(H) 79.0 - 98.0 FL LAB HEMETOLOGY METHOD 04/08/2025 6:26 PM EDT [facility] MCH 32.1(H) 27.0 - 32.0 pcg LAB HEMETOLOGY METHOD 04/08/2025 6:26 [facility] MCHC 31.8(L) 32.0 - 37.0 g/dL LAB HEMETOLOGY METHOD 04/08/2025 6:26 PM [facility] RDW 17.2(H) 11.0 - 15.0 % LAB HEMETOLOGY METHOD 04/08/2025 6:26 PM [facility] Platelets 327 130 - 400 K/[facility] LAB HEMETOLOGY METHOD 04/08/2025 6:26 PM [facility] MPV 9.3 7.0 - 11.0 FL LAB HEMETOLOGY METHOD 04/08/2025 6:26 [facility] NRBC 0.0 <1.0 % LAB HEMETOLOGY METHOD 04/08/2025 6:26 PM [facility] NRBC Absolute 0.00 <0.10 K/mcL LAB HEMETOLOGY METHOD 04/08/2025 6:26 PM [facility] Blood Venous blood specimen / Unknown Venipuncture / Unknown 04/08/2025 6:02 PM EDT 04/08/2025 6:21 PM EDT us Twyla Salazar MD LAB BLOOD ORDERABLES Final Resul t [facility] [address] [place] [address], * (ABNORMAL) Basic Metabolic Panel (BMP) (04/08/2025 6:02 PM EDT) Sodium 133 133 - 145 mmol/L LAB CHEMISTRY METHOD 04/08/2025 7:01 PM [facility] Potassium 4.2 3.5 - 5.5 mmol/L LAB CHEMISTRY METHOD 04/08/2025 7:01 PM [facility] Chloride 104 96 - 110 mmol/L LAB CHEMISTRY METHOD 04/08/2025 7:01 PM [facility] CO2 25 21 - 32 mmol/L LAB CHEMISTRY METHOD 04/08/2025 7:01 PM [facility] Anion Gap 4 3 - 11 LAB CHEMISTRY METHOD 04/08/2025 7:01 PM [facility] Glucose 85 70 - 100 mg/dL LAB CHEMISTRY METHOD 04/08/2025 7:01 PM [facility] BUN 5 5 - 25 mg/dL LAB CHEMISTRY METHOD 04/08/2025 7:01 PM [facility] Creatinine 0.55(L) 0.70 - 1.30 mg/dL LAB CHEMISTRY METHOD 04/08/2025 7:01 PM [facility] eGFR 116 >=60 mL/min/1. 73m2 LAB CHEMISTRY METHOD 04/08/2025 7:01 PM [facility] Comment:Calculation based on the Chronic Kidney Disease Epidemiology Collaboration (CKD-EPI) equation refit without adjustment for race. BUN/Creatinine Ratio 9.1 LAB CHEMISTRY METHOD 04/08/2025 7:01 PM [facility] Calcium 8.7 8.5 - 10.5 mg/dL LAB CHEMISTRY METHOD 04/08/2025 7:01 PM EDT [facility] Blood Venous blood specimen / Unknown Venipuncture / Unknown 04/08/2025 6:02 PM EDT 04/08/2025 6:21 PM EDT us Twyla Salazar MD LAB BLOOD ORDERABLES Final Resul t [facility] [address] [place] [address], [place] [phone] * (ABNORMAL) Urinalysis with reflex microscopic (04/08/2025 5:59 PM EDT) Specific [place] Urine 1.016 1.003 - 1.030 LAB URINALYSIS - AUTOMATED METHOD 04/08/2025 6:51 PM [facility] pH, Urine 6.5 5.0 - 8.0 pH LAB URINALYSIS - AUTOMATED METHOD 04/08/2025 6:51 PM [facility] Leukocytes, Urine Small(A) Negative LAB URINALYSIS - AUTOMATED METHOD 04/08/2025 6:51 PM [facility] Nitrite, Urine Negative Negative LAB URINALYSIS - AUTOMATED METHOD 04/08/2025 6:51 PM [facility] Protein, Urine Trace <=Trace mg/dL LAB URINALYSIS - AUTOMATED METHOD 04/08/2025 6:51 PM [facility] Glucose, Urine Negative Negative mg/dL LAB URINALYSIS - AUTOMATED METHOD 04/08/2025 6:51 PM [facility] Ketones, Urine Negative Negative mg/dL LAB URINALYSIS - AUTOMATED METHOD 04/08/2025 6:51 PM [facility] Urobilinogen, Urine 2.0(A) 0.2 - 1.0 mg/dL LAB URINALYSIS - AUTOMATED METHOD 04/08/2025 6:51 PM [facility] Bilirubin, Urine Large(A) Negative LAB URINALYSIS - AUTOMATED METHOD 04/08/2025 6:51 PM EDT [facility] Blood, Urine Negative Negative LAB URINALYSIS - AUTOMATED METHOD 04/08/2025 6:51 PM EDT [facility] RBC, Urine 4.1(H) 0 - 4 /HPF LAB URINALYSIS - AUTOMATED METHOD 04/08/2025 6:51 PM EDT [facility] WBC, Urine 0.4 0 - 4 /HPF LAB URINALYSIS - AUTOMATED METHOD 04/08/2025 6:51 PM EDT [facility] Squamous Epithelial, Urine 6 0 - 60 /LPF LAB URINALYSIS - AUTOMATED METHOD 04/08/2025 6:51 PM EDT [facility] Bacteria, Urine Few(A) Negative /HPF LAB URINALYSIS - AUTOMATED METHOD 04/08/2025 6:51 PM EDT [facility] Hyaline Casts, Urine 0.8 0 - 3 /LPF LAB URINALYSIS - AUTOMATED METHOD 04/08/2025 6:51 PM EDT [facility] Urine Urine specimen obtained by clean catch procedure / Unknown Non-blood Collection / Unknown 04/08/2025 5:59 PM EDT 04/08/2025 6:21 PM EDT us Twyla Salazar MD LAB URINE ORDERABLES Final Resul t [facility] [address] [place] [address], [place] [phone] * US Scrotum and Contents (04/08/2025 4:08 PM EDT) Anatomical Region Laterality Modality Body Ultrasound 04/08/2025 4:46 PM EDT Impressions 04/08/2025 4:52 PM EDT [...] Signed Date: 04/08/2025 16:52 ET Workstation ID: [id number] Transcribed By: Self Edit Transcribed Date: 04/08/2025 [...] Signed Date: 04/08/2025 16:52 ET Workstation ID: [id number] Transcribed By: Self Edit Transcribed Date: 04/08/2025 16:46 ET us Twyla Salazar MD IM US PROCEDURES Final Result from Last 3 Months Insurance MEDICARE MEDICAID - [place] Care Teams Ticket Taker Relationship Specialty Start Date End Date Tiffanie Vincent NP [address] [place] [phone] PCP - General Family Medicine 04/28/25
== END 2025-06-10 14:03 | disposition home or self-care (01) ==
LOC: HO.HUSH 13:32
PROVIDERS: PCP Nurse Practitioner Family; Visit Provider Urology
DX: N43.3 Hydrocele, unspecified (principal)
CPT/HCPCS: 55000

== ENCOUNTER → 2025-06-10 13:30 | Outpatient (BNVA) | payer MEDICARE, MEDICAID, SELFPAY | PROVIDERS: PCP Nurse Practitioner Family; Visit Provider Urology | DX: N43.3 Hydrocele, unspecified (principal) | CPT/HCPCS: 55000; J2003 ==

== ENCOUNTER → 2025-06-26 12:37 | Outpatient (BNVA) | payer MEDICARE, MEDICAID, SELFPAY | PROVIDERS: PCP Nurse Practitioner Family; Visit Provider Urology | DX: N40.1 Benign prostatic hyperplasia with lower urinary tract symptoms (principal); R35.0 Frequency of micturition | CPT/HCPCS: 51798 ==